=== PATIENT | male | born 1970 | race Caucasian/White ===

== ENCOUNTER 2020-03-25 17:21 | Emergency (ER) | payer OTHER ==
[2020-03-25] MEDS ORDERED: KETOROLAC 30 MG/1 ML INJ IM ONE (21:35)
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
[2020-03-26 00:44] VITALS: BP 136/88
== END 2020-03-25 22:09 | disposition home or self-care (01) ==
LOC: ED 17:21
DX: S39.012A Strain of muscle, fascia and tendon of lower back, initial encounter (principal); S60.512A Abrasion of left hand, initial encounter; M62.830 Muscle spasm of back; I10 Essential (primary) hypertension; Z79.1 Long term (current) use of non-steroidal anti-inflammatories (NSAID); Z79.899 Other long term (current) drug therapy; V49.49XA Driver injured in collision with other motor vehicles in traffic accident, initial encounter; W22.10XA Striking against or struck by unspecified automobile airbag, initial encounter; Y93.89 Activity, other specified; Y92.410 Unspecified street and highway as the place of occurrence of the external cause; Y99.8 Other external cause status
CPT/HCPCS: 96372; 99283; J1885